=== PATIENT | female | born 1960 | race Caucasian/White ===

== ENCOUNTER 2019-08-11 07:03 | Emergency (ER) | payer SELFPAY ==
[2019-08-11 07:15] LABS: INFLUENZA A NEGATIVE (NEGATIVE); INFLUENZA B NEGATIVE (NEGATIVE)
[2019-08-11 07:23] LABS: ABSOLUTE NEUTROPHIL COUNT 7.12; BASO % 0.4 % (0-6); EOS % 3.8 % (0-6); HEMATOCRIT 48.6 % (35.0-47.0); HEMOGLOBIN 15.7 gm/dl (11.6-16.0); LYMPH % 18.4 % (16-45); MEAN CELL VOLUME 86.9 fl (81-97); MEAN CORPUSCULAR HGB CONC 32.3 g/dl (32-36); MEAN PLATELET VOLUME 9.7 fl (7.4-10.4); MONO % 10.4 % (0-9); PLATELET COUNT 339 K/uL (130-400); RED BLOOD COUNT 5.59 M/uL (3.80-5.40); WHITE BLOOD COUNT W/O DIFF 10.6 K/uL (4.2-12.2)
--- NOTE | 2019-08-11 07:30 | Emergency Department Record ---
History of Present Illness - General Chief Complaint: Cough Stated Complaint: NOT FEELING WELL Time Seen by Provider: 08/11/19 07:04 Source: Patient Mode of Arrival: Ambulatory Limitations: No limitations - History of Present Illness Initial Comments: 59 yo female presents with about two weeks of cough, congestion, fatigue, hot and cold episodes. She has a productive sputum. She denies and headaches or dizziness. No nausea or vomiting. No diarrhea but the stools are darker. No blood in the stools. No abdominal pain. No burping or belching. No documented fevers but she has had subjective fevers. No edema. No chest pain. She has a history of HTN and Hypothyroidism. Dr Raymundo is her PCP MD Complaint: Cough, Nasal congestion Onset/Timin -: Week(s) Severity: Moderate Quality: Other Consistency: Getting worse Improves With: Other Context: Sick contacts Associated Symptoms: Chills, Cough, Nasal congestion, Other Treatments Prior to Arrival: None - Related Data Previous Rx's Medication Instructions Recorded Azithromycin [Zithromax] 250 mg PO DAILY #6 tab 08/11/19 Allergies Allergy/AdvReac Type Severity Reaction Status Date / Time No Known Allergies Allergy Unverified 12/19/18 09:25 Travel Screening - Travel/Exposure Within Last 30 Days Have you traveled within the last 30 days?: No - Travel/Exposure Within Last Year Have you traveled outside the [place] in the last year?: No - Additonal Travel Details Have you been exposed to anyone with a communicable illness?: No - Travel Symptoms Symptom Screening: None Review of Systems Constitutional: Reports: Chills, Fever, Malaise Eyes: Denies: Eye discharge ENT: Reports: Congestion. Denies: Dental pain, Epistaxis, Throat pain Respiratory: Reports: Cough. Denies: Dyspnea, Stridor, Wheezes Cardiovascular: Denies: Chest pain, Edema, Palpitations, Syncope Endocrine: Denies: Fatigue, Polydipsia, Polyuria Gastrointestinal: Reports: Other (Darker stools). Denies: Abdominal pain, Constipation, Diarrhea, Hematemesis, Hematochezia, Nausea, Vomiting Genitourinary: Denies: Dysuria, Frequency, Hematuria, Urgency Musculoskeletal: Denies: Arthralgia, Back pain, Myalgia, Neck pain Skin: Denies: Bruising, Change in color, Rash Neurological: Denies: Headache, Numbness, Weakness Psychiatric: Denies: Anxiety Hematological/Lymphatic: Denies: Easy bleeding, Easy bruising Past Medical History - SOCIAL HISTORY Smoking Status: Never smoker Alcohol Use: Occasional Drug Use: None - RESPIRATORY Hx Respiratory Disorders: No - CARDIOVASCULAR Hx Cardio Disorders: Yes Hx Hypertension: Yes - NEURO Hx Neuro Disorders: No - GI Hx GI Disorders: No - Hx Genitourinary Disorders: No - ENDOCRINE Hx Endocrine Disorders: Yes Hx Thyroid Disease: Yes - MUSCULOSKELETAL Hx Musculoskeletal Disorders: No - PSYCH Hx Psych Problems: No - HEMATOLOGY/ONCOLOGY Hx Hematology/Oncology Disorders: No Family Medical History Any Significant Family History?: No Physical Exam - General General Appearance: Alert, Oriented x3, Cooperative, No acute distress Limitations: No limitations - Head Head exam: Atraumatic, Normal inspection - Eye Eye exam: Normal appearance, PERRL. negative: Conjunctival injection, Scleral icterus Pupils: Normal accommodation - ENT ENT exam: Normal exam, Mucous membranes moist Ear exam: Normal external inspection Nasal Exam: Normal inspection Mouth exam: Normal external inspection - Neck Neck exam: Normal inspection. negative: Lymphadenopathy - Respiratory Respiratory exam: Normal lung sounds bilaterally. negative: Accessory muscle use, Decreased breath sounds, Prolonged expiratory, Rhonchi, Stridor, Wheezes - Cardiovascular Cardiovascular Exam: Regular rate, Normal rhythm, Normal heart sounds - GI/Abdominal GI/Abdominal exam: Soft. negative: Distended, Guarding, Tenderness - Rectal Rectal exam: Deferred - exam: Deferred - Extremities Extremities exam: Normal inspection. negative: Pedal edema, Tenderness - Back Back exam: Denies: CVA tenderness (R), CVA tenderness (L) - Neurological Neurological exam: Alert, Oriented X3 - Psychiatric Psychiatric exam: Normal affect, Normal mood. negative: Agitated, Anxious - Skin Skin exam: Dry, Intact, Normal color, Warm Course Vital Signs 08/11/19 07:04 Temperature 98.2 F Pulse Rate 100 H Respiratory 18 Rate Blood Pressure 141/73 Pulse Ox 100 - Reevaluation(s) Reevaluation #1: The patient was seen and examined at 07:00 (Initial chart started on paper due to computer downtime) 08/11/19 07:04 08/11/19 07:34 The vitals were reviewed. No fever or hypoxia. 08/11/19 07:35 The influenza are negative The CBC was reviewed and is unremarkable 08/11/19 07:50 The CMP is normal We discussed the results of the tests and questions were answered. The patient is doing well and is comfortable with DC. We discussed at length reasons to immediately return to the ED as well as close follow up. 08/11/19 07:51 TSH is normal Medical Decision Making - Lab Data Result diagrams: 08/11/19 07:10 08/11/19 07:10 Lab Results 08/11/19 08/11/19 Range/Units 06:30 07:10 WBC 10.6 (4.2-12.2) K/uL RBC 5.59 H (3.80-5.40) M/uL Hgb 15.7 (11.6-16.0) gm/dl Hct 48.6 H (35.0-47.0) % MCV 86.9 (81-97) fl MCH 28.0 (27-33) pg MCHC 32.3 (32-36) g/dl RDW 14.0 (11.5-14.5) % Plt Count 339 (130-400) K/uL MPV 9.7 (7.4-10.4) fl Gran % 67.0 (47-80) % Lymphocytes % 18.4 (16-45) % Monocytes % 10.4 H (0-9) % Eosinophils % 3.8 (0-6) % Basophils % 0.4 (0-6) % Absolute Neutrophils 7.12 Influenza Type A Ag Negative (NEGATIVE) Influenza Type B Ag Negative (NEGATIVE) Disposition Disposition: Discharge Clinical Impression: Bronchitis Disposition: Home, Self-Care Condition: (1) Good Instructions: Acute Bronchitis (ED) Additional Instructions: Review this ER visit and the tests performed with your family doctor Call your doctor for the next available follow up appointment Return to the ER for a recheck immediately if worse, any new concerns or questions Take the prescriptions provided as directed Prescriptions: Azithromycin [Zithromax] 250 mg PO DAILY #6 tab Forms: Patient Portal Access Time of Disposition: 07:50 Quality - Quality Measures Quality Measures: N/A - Blood Pressure Screening Does Patient Have Any of the Following: Active Dx of HTN Blood Pressure Classification: Hypertensive Reading Systolic Measurement: 141 Diastolic Measurement: 73 Screening for High Blood Pressure: Patient Exclusion, Hx of HTN [G9744]
[2019-08-11 07:31] LABS: BLOOD UREA NITROGEN 16 mg/dL (8-23); CREATININE 0.6 mg/dL (0.5-0.9); EST GLOMERULAR FILTRATION RATE > 60 mL/min
[2019-08-11 07:32] LABS: TOTAL PROTEIN 7.2 g/dL (6.6-8.7)
[2019-08-11 07:34] LABS: GLUCOSE,RANDOM 95 mg/dL (74-109)
[2019-08-11 07:36] LABS: ALT/SGPT 10 U/L (<33)
[2019-08-11 07:37] LABS: ALKALINE PHOSPHATASE 82 U/L (35-104); AST/SGOT 13 U/L (10.0-35.0)
[2019-08-11 07:39] LABS: BILIRUBIN,DIRECT < 0.2 mg/dL (0-0.3)
== END 2019-08-11 07:55 | disposition home or self-care (01) ==
LOC: ER 07:03
DX: J20.9 Acute bronchitis, unspecified (principal); I10 Essential (primary) hypertension; E03.9 Hypothyroidism, unspecified
CPT/HCPCS: 80048; 80076; 84443; 85027; 87400; 99283